=== PATIENT | male | born 1965 | race African-American/Black ===

== ENCOUNTER 2024-12-11 18:17 | Inpatient (IN) | payer MEDICAID, OTHER ==
[~2024-12-11] VITALS: Ht 167.6 cm; Wt 85.6 kg
[2024-12-11 18:20] VITALS: O2SAT 97
[2024-12-11] MEDS ORDERED: DEXTROSE 50% WATER 50ML SYRINGE IV ONE (18:53)
[2024-12-11] MEDS: DEXTROSE 50% WATER 50ML SYRINGE IV ONE (18:59)
[2024-12-11] MEDS: DEXT 5%/0.9% NACL 1,000 ML IV ONE (19:14)
[2024-12-11 19:26] LABS: BASOPHILS % 0.9 % (0.0-2.0); EOSINOPHILS % 0.3 % (0.0-5.0); HEMATOCRIT. 26.1 % (42.0-52.0); HEMOGLOBIN. 8.7 g/dL (14.0-18.0); LYMPHOCYTES % 15.8 % (20.0-50.0); MEAN CORPUSCULAR HEMOGLOBIN 28.3 pg (28.0-32.0); MEAN CORPUSCULAR HGB CONC 33.3 g/dL (31.0-37.0); MEAN CORPUSCULAR VOLUME 84.8 fL (80.0-94.0); MEAN PLATELET VOLUME 10.1 fl (7.4-10.4); MONOCYTES % 6.4 % (2.0-8.0); NEUTROPHILS % 76.6 % (40.0-76.0); PLATELET 260 x1000/uL (130-400); RED BLOOD CELL COUNT 3.08 mill/uL (4.7-6.1); RED CELL DISTRIBUTION WIDTH 15.6 % (11.6-14.6); WHITE BLOOD COUNT 10.5 x1000/uL (4.5-11.0)
[2024-12-11 19:29] LABS: CARBON DIOXIDE 23 mEq/L (21-32); CHLORIDE 109 mEq/L (98-107); POTASSIUM 3.5 mEq/L (3.5-5.1); SODIUM 140 mEq/L (136-145)
[2024-12-11 19:30] LABS: CALCIUM 8.4 mg/dL (8.7-10.4)
[2024-12-11 19:35] LABS: ETHANOL BLOOD < 10 mg/dL (<10); UREA NITROGEN BLOOD 22 mg/dL (9-23)
[2024-12-11 19:37] LABS: TROPONIN I HIGH SENSITIVITY 16 ng/L (3.0-53)
[2024-12-11 19:41] LABS: GLUCOSE 21 mg/dL (70-105)
[2024-12-11 19:57] LABS: CLARITY URINE CLEAR (CLEAR); COLOR URINE YELLOW (YELLOW); GLUCOSE URINE TRACE (NEGATIVE); KETONES URINE TRACE (NEGATIVE); LEUKOCYTE ESTERASE URINE NEGATIVE (NEGATIVE); NITRITE URINE NEGATIVE (NEGATIVE); OCCULT BLOOD URINE NEGATIVE (NEGATIVE); PH URINE 5.5 (4.5-8.0); PROTEIN URINE 3+ (NEGATIVE); SPECIFIC GRAVITY URINE 1.015 (1.005-1.030)
[2024-12-11 20:10] LABS: *AMPHETAMINES SCREEN URINE NEGATIVE (NEGATIVE); *BARBITURATES SCREEN URINE NEGATIVE (NEGATIVE); *BENZODIAZEPINES SCREEN URINE NEGATIVE (NEGATIVE); *COCAINE SCREEN URINE NEGATIVE (NEGATIVE); CANNABINOID URINE SCREEN PRESUMPTIVE POSITIVE (NEGATIVE); METHADONE URINE SCREEN NEGATIVE (NEGATIVE); OPIATES URINE SCREEN NEGATIVE (NEGATIVE); PHENCYCLIDINE URINE SCREEN NEGATIVE (NEGATIVE)
[2024-12-11 20:11] LABS: BACTERIA URINE 1+; ECSTASY MDMA SCREEN URINE NEGATIVE (NEGATIVE); RBC URINE NONE SEEN /hpf (0-2); SQUAMOUS EPITHELIAL CELL URINE RARE /lpf (RARE/1+); WBC URINE 0-2 /hpf (0-2)
[2024-12-11] MEDS ORDERED: ACETAMINOPHEN 325MG TABLET PO PRN ×2 (21:30)
[2024-12-11] MEDS ORDERED: CLONIDINE 0.1MG TABLET PO PRN (21:30)
[2024-12-11] MEDS ORDERED: ZOLPIDEM TARTRATE 5MG TABLET PO PRN (21:30)
[2024-12-11] MEDS ORDERED: IPRATROPIUM/ALBUTEROL 0.5-3(2.5)MG/3ML NEB HHN PRN (21:30)
[2024-12-11] MEDS ORDERED: GLUCAGON,HUMAN RECOMBINANT 1MG/VIAL IV PRN (21:30)
[2024-12-11] MEDS ORDERED: DOCUSATE SODIUM 100MG CAPSULE PO PRN (21:30)
[2024-12-11] MEDS ORDERED: ONDANSETRON HCL 4MG/2ML INJ IV PRN (21:30)
[2024-12-11] MEDS ORDERED: MAGNESIUM/ALUMINUM HYDROXIDE/SIMETHICONE 30ML UDC PO PRN (21:30)
[2024-12-11] MEDS ORDERED: DIPHENHYDRAMINE 50MG/ML VIAL IV PRN (21:30)
[2024-12-11] MEDS ORDERED: GUAIFENESIN 200MG/10ML SUGAR FREE UDC PO PRN (21:30)
[2024-12-11 22:00] VITALS: BP 148/76; PULSE 77; RESP 20; TEMP 36.4; O2SAT 98
[2024-12-11] MEDS: INSULIN LISPRO 100 UNITS/ML SUBCUT SCH (22:00)
[2024-12-11] MEDS: DEXTROSE 50% WATER 50ML SYRINGE IV PRN (22:52)
[2024-12-11] MEDS: BLOOD SUGAR DIAGNOSTIC STRIP TEST SCH (22:53)
[2024-12-11 23:41] LABS: D-DIMER 0.45 mg/L FEU (<0.50); INR 0.9; PROTHROMBIN TIME 10.2 sec (9.6-11.0)
[2024-12-11 23:47] LABS: IRON 23 ug/dL (65-175)
[2024-12-11 23:48] LABS: LDL CHOLESTEROL 76 mg/dL (5-100); TRIGLYCERIDE 115 mg/dL (0-150)
[2024-12-11 23:49] LABS: CHOLESTEROL 174 mg/dL (<200); CREATINE KINASE 603 IU/L (46-171); HDL CHOLESTEROL 69 mg/dL (>55); TROPONIN I HIGH SENSITIVITY 18 ng/L (3.0-53)
[2024-12-11 23:50] LABS: PHOSPHORUS 3.6 mg/dL (2.5-4.9); TOTAL IRON BINDING CAPACITY 288 ug/dl (250-425)
[2024-12-11 23:53] LABS: THYROID STIMULATING HORMONE 1.95 uIU/mL (0.55-4.78)
[2024-12-11 23:54] LABS: T4 FREE 0.79 ng/dL (0.89-1.76)
[2024-12-12] VITALS: BP 173/83; PULSE 78; RESP 18; TEMP 36.7; O2SAT 97
[2024-12-12] MEDS: DEXT 5%/0.45% NACL 1000ML 1,000 ML IV ONE (00:19)
[2024-12-12] MEDS: AMLODIPINE 5MG TABLET PO NR (00:43)
[2024-12-12 04:00] VITALS: BP 163/85; PULSE 80; RESP 18; TEMP 36.8; O2SAT 100
[2024-12-12 06:26] LABS: CALCIUM 8.4 mg/dL (8.7-10.4); CARBON DIOXIDE 22 mEq/L (21-32); CHLORIDE 108 mEq/L (98-107); POTASSIUM 4.3 mEq/L (3.5-5.1); SODIUM 137 mEq/L (136-145)
[2024-12-12] MEDS ORDERED: AMLO10TA80 PO (06:29)
[2024-12-12] MEDS ORDERED: LOSA50TA41 PO (06:29)
[2024-12-12] MEDS ORDERED: INSU100I33 SUBCUT (06:29)
[2024-12-12 06:30] LABS: BASOPHILS % 0.8 % (0.0-2.0); EOSINOPHILS % 1.2 % (0.0-5.0); HEMATOCRIT. 25.6 % (42.0-52.0); HEMOGLOBIN. 8.4 g/dL (14.0-18.0); MEAN CORPUSCULAR HEMOGLOBIN 27.8 pg (28.0-32.0); MEAN CORPUSCULAR VOLUME 84.1 fL (80.0-94.0); MEAN PLATELET VOLUME 10.1 fl (7.4-10.4); MONOCYTES % 6.1 % (2.0-8.0); NEUTROPHILS % 74.9 % (40.0-76.0); PLATELET 212 x1000/uL (130-400); RED BLOOD CELL COUNT 3.04 mill/uL (4.7-6.1); RED CELL DISTRIBUTION WIDTH 15.5 % (11.6-14.6); WHITE BLOOD COUNT 7.6 x1000/uL (4.5-11.0)
[2024-12-12 06:32] LABS: CREATININE 1.6 mg/dL (0.6-1.3); UREA NITROGEN BLOOD 15 mg/dL (9-23)
[2024-12-12 06:33] LABS: TROPONIN I HIGH SENSITIVITY 20 ng/L (3.0-53)
[2024-12-12 06:34] LABS: PHOSPHORUS 3.3 mg/dL (2.5-4.9)
[2024-12-12 06:37] LABS: CREATINE KINASE 500 IU/L (46-171)
[2024-12-12 06:46] LABS: GLUCOSE 198 mg/dL (70-105)
[2024-12-12] MEDS ORDERED: FERROUS SULFATE 325MG TABLET PO SCH (07:15)
[2024-12-12 07:18] LABS: DIFFERENTIAL COMMENT 1
[2024-12-12 08:00] VITALS: BP 168/74; PULSE 81; RESP 18; TEMP 36.3; O2SAT 97
[2024-12-12] MEDS ORDERED: AMLODIPINE 5MG TABLET PO SCH (09:00)
[2024-12-12] MEDS ORDERED: ENOXAPARIN 40MG/0.4ML SYR SUBCUT SCH (09:00)
[2024-12-12] MEDS ORDERED: FAMOTIDINE 20MG/2ML VIAL IV SCH (09:00)
== END 2024-12-12 08:50 | disposition left against medical advice (07) | DRG 639 ==
LOC: ER 18:17 → EDBEDREQTM 20:28 → EDBEDREQ 20:28 → 5WST 21:15
PROVIDERS: ADMIT Internal Medicine; ATTEND Internal Medicine
DX: E11.649 Type 2 diabetes mellitus with hypoglycemia without coma (principal); D50.9 Iron deficiency anemia, unspecified; E03.9 Hypothyroidism, unspecified; Z53.29 Procedure and treatment not carried out because of patient's decision for other reasons; R74.8 Abnormal levels of other serum enzymes; I12.9 Hypertensive chronic kidney disease with stage 1 through stage 4 chronic kidney disease, or unspecified chronic kidney disease; E11.22 Type 2 diabetes mellitus with diabetic chronic kidney disease; N18.31 Chronic kidney disease, stage 3a; N17.9 Acute kidney failure, unspecified; Z55.6 Problems related to health literacy; Z79.4 Long term (current) use of insulin; Z79.899 Other long term (current) drug therapy
CPT/HCPCS: 36415; 71045; 80048; 80061; 80305; 80320; 81003; 82550; 82728; 82962; 83036; 83540; 83550; 83735; 84100; 84439; 84443; 84484; 85025; 85379; 93005; 99285; A4606; J1650; J1815; J3490; J7042; G0480